=== PATIENT | female | born 1990 | race Caucasian/White ===

== ENCOUNTER 2020-05-24 14:36 | Emergency (ER) | payer MEDICAID ==
[~2020-05-24] VITALS: Ht 165.1 cm; Wt 80.0 kg
[2020-05-24 14:42] VITALS: BP 140/96
[2020-05-24] MEDS ORDERED: LIDOCAINE HCL/EPINEPHRINE 1%-EPI 1:100,000 20 ML VIAL INFIL ONE (15:45)
[2020-05-24] MEDS ORDERED: LIDOCAINE HCL/EPINEPHRINE 1%-EPI 1:100,000 30 ML VIAL INFIL ONE (15:45)
[2020-05-24] MEDS ORDERED: TETANUS, DIPHTHERIA, PERTUSSIS VAC/PF 0.5ML (>7YR OLD) IM ONE (15:45)
[2020-05-24] MEDS ORDERED: BACITRACIN ZINC OINT UDPKT TOP ONE (16:30)
== END 2020-05-24 16:51 | disposition home or self-care (01) ==
LOC: ER 14:36
DX: S01.81XA Laceration without foreign body of other part of head, initial encounter (principal); W22.8XXA Striking against or struck by other objects, initial encounter; Y93.89 Activity, other specified; Y92.89 Other specified places as the place of occurrence of the external cause; Y99.8 Other external cause status
CPT/HCPCS: 12015; 90471; 90715; 99283; J3490

== ENCOUNTER 2020-05-27 12:36 | Emergency (ER) | payer MEDICAID ==
[~2020-05-27] VITALS: Ht 152.4 cm; Wt 77.0 kg
[2020-05-27 14:20] VITALS: BP 143/87
== END 2020-05-27 14:20 | disposition home or self-care (01) ==
LOC: ER 12:36
DX: Z48.00 Encounter for change or removal of nonsurgical wound dressing (principal)
CPT/HCPCS: 99282

== ENCOUNTER 2020-05-31 11:43 | Emergency (ER) | payer MEDICAID ==
[~2020-05-31] VITALS: Ht 152.4 cm; Wt 77.0 kg
[2020-05-31 13:40] VITALS: BP 130/76
== END 2020-05-31 13:40 | disposition home or self-care (01) ==
LOC: ER 11:43
DX: Z48.02 Encounter for removal of sutures (principal)
CPT/HCPCS: 99281